=== PATIENT | female | born 1965 | race Two or more races ===

== ENCOUNTER 2021-02-20 09:14 | Outpatient (CLI) | payer OTHER | END 2021-02-20 09:20 | disposition home or self-care (01) | LOC: RAD 09:14 | PROVIDERS: ATTEND Orthopaedic Surgery | DX: M66.361 Spontaneous rupture of flexor tendons, right lower leg (principal) ==

== ENCOUNTER 2021-03-04 11:00 | Day surgery (SDC) | payer OTHER ==
[~2021-03-04 11:00] MED LIST: COZAAR100 MG PO; D3 + K2 DOTS 11 EACH PO; SINGULAIR10 MG PO
[2021-03-04] MEDS ORDERED: DUI500 PO (15:20)
[2021-03-04] MEDS ORDERED: OXYC1TAB9 PO (15:20)
== END 2021-03-04 20:00 | disposition home or self-care (01) ==
LOC: CIR.AMB 11:00
PROVIDERS: ATTEND Orthopaedic Surgery Sports Medicine
DX: S86.011A Strain of right Achilles tendon, initial encounter (principal); Z20.822 Contact with and (suspected) exposure to COVID-19